=== PATIENT | male | born 1955 ===

== ENCOUNTER 2023-05-09 11:45 | Inpatient (IN) | payer OTHER ==
[~2023-05-09] VITALS: Ht 172.7 cm; Wt 68.0 kg
[2023-05-09] MEDS ORDERED: LIPITOR20 MG PO (14:11)
[2023-05-09] MEDS ORDERED: SYNTH PO (14:11)
[2023-05-12] MEDS ORDERED: LEVOTHYROXINE50 MCG (08:18)
[2023-05-14] MEDS ORDERED: HYOSCYAMINE0.125 M1 SL (08:01)
[2023-05-14] MEDS ORDERED: TRAM1TAB98 PO (08:02)
[2023-05-14] MEDS ORDERED: PEPCID AC20 MG PO (08:02)
== END 2023-05-14 13:35 | disposition home or self-care (01) | DRG 330 ==
LOC: O/R 05-12 05:15 → SURH 05-12 05:15 → SURG 05-12 07:00 → SURH 05-12 11:45 → SURG 05-12 11:45 → SURH 05-14 13:35
PROVIDERS: ADMIT Surgery; ATTEND Surgery
PROC: 07BB4ZZ Excision of Mesenteric Lymphatic, Percutaneous Endoscopic Approach (ICD-10-PCS; 2023-05-12)
PROC: 8E0W4CZ Robotic Assisted Procedure of Trunk Region, Percutaneous Endoscopic Approach (ICD-10-PCS; 2023-05-12)
PROC: 3E0F7SF Introduction of Other Gas into Respiratory Tract, Via Natural or Artificial Opening (ICD-10-PCS; 2023-05-12)
PROC: 0DBL4ZZ Excision of Transverse Colon, Percutaneous Endoscopic Approach (ICD-10-PCS; principal; 2023-05-12 07:00)
DX: D12.3 Benign neoplasm of transverse colon (principal); K62.5 Hemorrhage of anus and rectum; R59.0 Localized enlarged lymph nodes; E03.9 Hypothyroidism, unspecified; E78.00 Pure hypercholesterolemia, unspecified
CPT/HCPCS: 44204; 38570; 44213; S2900